=== PATIENT | female | born 2000 | race African-American/Black ===

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

== ENCOUNTER 2019-03-20 19:14 | Emergency (ER) | payer MEDICAID ==
[~2019-03-20] VITALS: Ht 157.5 cm; Wt 58.0 kg
[2019-03-20] MEDS ORDERED: SODIUM CHLORIDE 0.9% 1,000 ML IV ONE (22:16)
[2019-03-21 01:20] LABS: BASOPHILS % 0.9 % (0.0-2.0); EOSINOPHILS % 6.8 % (0.0-5.0); HEMATOCRIT. 34.1 % (36.0-48.0); HEMOGLOBIN. 11.5 g/dL (12.0-16.0); LYMPHOCYTES % 39.5 % (20.0-50.0); MEAN CORPUSCULAR HEMOGLOBIN 29.5 pg (28.0-32.0); MEAN CORPUSCULAR VOLUME 87.1 fL (81.0-99.0); MEAN PLATELET VOLUME 10.1 fl (7.4-10.4); MONOCYTES % 8.4 % (2.0-8.0); NEUTROPHILS % 44.4 % (40.0-76.0); PLATELET 159 x1000/uL (130-400); RED BLOOD CELL COUNT 3.91 mill/uL (4.2-5.4); RED CELL DISTRIBUTION WIDTH 14.6 % (11.6-14.6)
[2019-03-21 01:30] LABS: CHLORIDE 113 mEq/L (98-107)
[2019-03-21 01:34] LABS: INR 1.1; PROTHROMBIN TIME 11.7 sec (9.6-11.0)
[2019-03-21 01:40] LABS: B-HCG QUANTITATIVE < 1 mIU/mL (<3)
[2019-03-21 02:25] VITALS: BP 121/64
== END 2019-03-21 02:30 | disposition home or self-care (01) ==
LOC: ER 19:14
DX: N93.8 Other specified abnormal uterine and vaginal bleeding (principal); R30.0 Dysuria; J45.909 Unspecified asthma, uncomplicated; H10.89 Other conjunctivitis
CPT/HCPCS: 36415; 76830; 76856; 80053; 81025; 84702; 85025; 85610; 86850; 86900; 86901; 99284; J7030; Z7610